=== PATIENT | female | born 1940 | race Caucasian/White ===

== ENCOUNTER 2021-05-20 09:08 | Emergency (ER) | payer OTHER ==
[2021-05-20 09:11] VITALS: BP 126/78; PULSE 90; TEMP 97.9; BMI 18.0
== END 2021-05-20 10:53 | disposition home or self-care (01) ==
LOC: JER 09:08 → JERFT 09:08
DX: S92.352A Displaced fracture of fifth metatarsal bone, left foot, initial encounter for closed fracture (principal); W17.2XXA Fall into hole, initial encounter
CPT/HCPCS: 73630-TC-LT; 99283-25